=== PATIENT | male | born 1960 | race Caucasian/White ===

== ENCOUNTER 2017-12-06 09:15 | Day surgery (SDC) | payer BC ==
[2017-12-06] MEDS ORDERED: MIDAZOLAM 1 MG/ML 2 ML INJ (11:48)
[2017-12-06] MEDS ORDERED: FENTAnyl 50 MCG/ML VIAL (11:48)
== END 2017-12-06 12:14 | disposition home or self-care (01) ==
LOC: GIL 09:15
DX: Z12.11 Encounter for screening for malignant neoplasm of colon (principal); D12.5 Benign neoplasm of sigmoid colon; K64.8 Other hemorrhoids; K57.90 Diverticulosis of intestine, part unspecified, without perforation or abscess without bleeding; E11.9 Type 2 diabetes mellitus without complications; I10 Essential (primary) hypertension
CPT/HCPCS: 45380; 88305